=== PATIENT | female | born 1960 | race Caucasian/White ===

== ENCOUNTER 2018-01-14 07:20 | Day surgery (SDC) | payer MEDICARE, MEDICAID ==
[~2018-01-14] VITALS: Ht 160 cm; Wt 68.0 kg
[2018-01-14] MEDS ORDERED: SIMETHICONE 40 MG/0.6 ML ML ONE (07:32)
[2018-01-14] MEDS ORDERED: MIDAZOLAM HCL 5 MG/5 ML VIAL ONE (07:37)
[2018-01-14] MEDS ORDERED: fentaNYL CITRATE/PF 100 MCG/2 ML AMP ONE (07:37)
[2018-01-14 11:16] VITALS: BP_SYST 124
== END 2018-01-14 10:20 | disposition home or self-care (01) ==
LOC: SDS 07:20
PROVIDERS: ATTEND Surgery
DX: K29.70 Gastritis, unspecified, without bleeding (principal); Z79.82 Long term (current) use of aspirin; E78.00 Pure hypercholesterolemia, unspecified
CPT/HCPCS: 36415; 43239; 87081; 88305; 88313; J2250; J3010; J7030